=== PATIENT | female | born 1935 | race Caucasian/White ===

== ENCOUNTER 2018-01-17 17:32 | Emergency (ER) | payer MEDICARE, MEDICAID ==
[2018-01-17 17:56] LABS: % EOSINOPHILS 0.6 % (0.0-5.0); % LYMPHOCYTES 17.3 % (20.0-50.0); % MONOCYTES 7.2 % (2.0-10.0); % NEUTROPHILS 73.9 % (40.0-80.0); BASOPHILE ABSOLUTE 0.1 Th/cumm (0-0.2); HEMATOCRIT 40.6 % (41.0-60); HEMOGLOBIN 13.6 gm/dL (12-16); LYMPHOCYTE ABSOLUTE 1.1 Th/cmm (1.5-3.0); MEAN CELL VOLUME 81.8 fl (81-100); MEAN CORPUSCULAR HEMOGLOBIN 27.4 pg (27.0-31.0); MEAN CORPUSCULAR HGB CONC 33.6 pg (28.0-36.0); MEAN PLATELET VOLUME 8.7 fl; MONOCYTE ABSOLUTE 0.4 Th/cmm (0.3-1.0); NEUTROPHILE ABSOLUTE 4.5 Th/cmm (1.8-8.0); PLATELET COUNT 108 Th/cmm (150-400); RED BLOOD COUNT 4.96 Mil/cmm (3.80-5.20); RED CELL DISTRIBUTION WIDTH 13.6 % (11.5-20.0); WHITE BLOOD COUNT 6.1 Th/cmm (4.8-10.8)
[2018-01-17 18:10] LABS: ALB/GLOB RATIO 1.5 (1.0-1.8); ALBUMIN 4.3 gm/dL (3.7-5.3); ALKALINE PHOSPHATASE 70 U/L (34-104); ANION GAP 13.7 (7.0-16.0); BILIRUBIN,TOTAL 0.4 mg/dL (0.3-1.0); BUN - UREA NITROGEN 32 mg/dL (7-25); CALCIUM SERUM 10.3 mg/dL (8.6-10.3); CARBON DIOXIDE 23.7 mEq/L (21.0-31.0); CHLORIDE 102 mEq/L (98-107); CREATININE - SERUM 1.2 mg/dL (0.6-1.2); GLUCOSE 142 mg/dL (70-105); POTASSIUM SERUM 4.4 mEq/L (3.5-5.1); SGOT 11 U/L (13-39); SGPT/ALT 9 U/L (7-52); SODIUM SERUM 135 mEq/L (136-145); TOTAL PROTEIN,SERUM 7.1 gm/dL (6.0-8.3)
--- NOTE | 2018-01-17 18:15 | ED Physician Chart ---
ED Chief Complaint/HPI - Patient Information Date Seen:: 01/17/18 Time Seen:: 17:45 Chief Complaint:: headache and abdominal pain History of Present Illness:: THIS IS AN 82 YO FEMALE BIB EMS FROM A [facility] FOR AN EVALUATION OF HER HEADACHE AND ABDOMINAL PAIN. SHE STATES THAT THE PAIN IN HER ABDOMEN AND HEAD STARTED AT THE SAME TIME AT 0300 HRS TODAY. SHE DENIES HAVING FEVER, NAUSEA OR VOMITING. SHE STATES THAT SHE HAD BREAKFAST AND LUNCH WITHOUT VOMITING. SHE ALSO STATES THAT SHE HAD A BOWEL MOVEMENT THIS AM. SHE STATES THAT THE PAIN HAS GOTTEN WORSE SINCE IT FIRST STARTED. THE PAIN IS 6/10. Allergies:: Allergies Allergy/AdvReac Type Severity Reaction Status Date / Time No Known Allergies Allergy Verified 01/17/18 17:42 Vitals:: Vital Signs - 8 hr 01/17/18 17:42 Temp 98.5 F HR 77 RR 18 BP 164/63 O2 Sat % 95 Historian:: Patient, Medical Records Review:: Nurse's Note Reviewed, Transfer documents Reviewed ED Review of Systems - Review of Systems General/Constitutional: No fever, No chills, No weight loss, No weakness, No diaphoresis, No edema, No loss of appetite Skin: No skin lesions, No rash, No bruising Head: Headache, No light-headedness Eyes: No loss of vision, No pain, No diplopia ENT: No earache, No nasal drainage, No sore throat, No tinnitus Neck: No neck pain, No swelling, No thyromegaly, No stiffness, No mass noted Cardio Vascular: No chest pain, No palpitations, No PND, No orthopnea, No edema Pulmonary: No SOB, No cough, No sputum, No wheezing GI: No nausea, No vomiting, No diarrhea, Pain, No melena, No hematochezia, No constipation, No hematemesis G/U: No dysuria, No frequency, No hematuria Musculoskeletal: No bone or joint pain, No back pain, No muscle pain Endocrine: No polyuria, No polydipsia Psychiatric: No prior psych history, No depression, No anxiety, No suicidal ideation Hematopoietic: No bruising, No lymphadenopathy Allergic/Immuno: No urticaria, No angioedema Neurological: No syncope, No focal symptoms, No weakness, No paresthesia, No headache, No seizure, No dizziness, No confusion, No vertigo ED Past Medical History - Past Medical History Obtainable: Yes Past Medical History: HTN, Arthritis, Dementia Family History: None Social History: Non Smoker, No Alcohol, No Drug Use, Care Facility Surgical History: other (bldder surgery) Family Medical History - Family Member Daughter History Unknown: Yes Ethnicity: Non- Living Status: Hx Family Cancer: Yes ED Physical Exam - Physical Examination General/Constitutional: Awake, Well-developed, well-nourished, Alert, No distress, GCS 15, Non-toxic appearing, Ambulatory Head: Atraumatic Eyes: Lids, conjuctiva normal, PERRL, EOMI Skin: Nl inspection, No rash, No skin lesions, No ecchymosis, Well hydrated, No lymphadenopathy ENMT: External ears, nose nl, Nasal exam nl, Lips, teeth, gums nl Neck: Nontender, Full ROM w/o pain, No JVD, No nuchal rigidity, No bruit, No mass, No stridor Respiratory: Nl effort/Exclusion, Clear to Auscultation, No Wheeze/Rhonchi/Rales Cardio Vascular: RRR, No murmur, gallop, rubs, NL S1 S2 GI: No tenderness/rebounding/guarding (LEFT LOWER QUADRANT FULLNESS AND TENDERNESS), No organomegaly, No hernia, Normal BS's, Nondistended, No mass/ bruits, No McBurney tenderness : No CVA tenderness Extremities: No tenderness or effusion, Full ROM, normal strength in all extremities, No edema, Normal digits & nails Neuro/Psych: Alert/oriented, DTR's symmetric, Normal sensory exam, Normal motor strength, Judgement/insight normal, Mood normal, Normal gait, No focal deficits Misc: Normal back, No paraspinal tenderness ED Labs/Radiology/EKG Results - Lab Results Results: Laboratory Tests 01/17/18 17:45 WBC 6.1 RBC 4.96 Hgb 13.6 Hct 40.6 L MCV 81.8 MCH 27.4 MCHC Differential 33.6 RDW 13.6 Plt Count 108 L MPV 8.7 Neutrophils % 73.9 Lymphocytes % 17.3 L Monocytes % 7.2 Eosinophils % 0.6 Basophils % 1.0 Abnormal Lab Results 01/17/18 01/17/18 01/17/18 17:45 17:45 17:45 WBC 6.1 RBC 4.96 Hgb 13.6 Hct 40.6 L MCV 81.8 MCH 27.4 MCHC Differential 33.6 RDW 13.6 Plt Count 108 L MPV 8.7 Neutrophils % 73.9 Lymphocytes % 17.3 L Monocytes % 7.2 Eosinophils % 0.6 Basophils % 1.0 Sodium Potassium Chloride Carbon Dioxide Anion Gap BUN Creatinine Est GFR ( Amer) Est GFR (Non-Af Amer) BUN/Creatinine Ratio Glucose Calcium Total Bilirubin AST ALT Alkaline Phosphatase Troponin I 0.01 Total Protein Albumin Globulin Albumin/Globulin Ratio TSH 1.26 Urine Source Urine Color Urine Clarity Urine pH Ur Specific [place] Urine Protein Urine Glucose (UA) Urine Ketones Urine Blood Urine Nitrate Urine Bilirubin Urine Urobilinogen Ur Leukocyte Esterase 01/17/18 01/17/18 17:45 19:30 WBC RBC Hgb Hct MCV MCH MCHC Differential RDW Plt Count MPV Neutrophils % Lymphocytes % Monocytes % Eosinophils % Basophils % Sodium 135 L Potassium 4.4 Chloride 102 Carbon Dioxide 23.7 Anion Gap 13.7 BUN 32 H Creatinine 1.2 Est GFR ( Amer) TNP Est GFR (Non-Af Amer) TNP BUN/Creatinine Ratio 26.7 Glucose 142 H Calcium 10.3 Total Bilirubin 0.4 AST 11 L ALT 9 Alkaline Phosphatase 70 Troponin I Total Protein 7.1 Albumin 4.3 Globulin 2.8 Albumin/Globulin Ratio 1.5 TSH Urine Source CLEAN C Urine Color YELLOW Urine Clarity CLEAR Urine pH 5.5 Ur Specific [place] 1.020 Urine Protein NEGATIVE Urine Glucose (UA) NEGATIVE Urine Ketones NEGATIVE Urine Blood NEGATIVE Urine Nitrate NEGATIVE Urine Bilirubin NEGATIVE Urine Urobilinogen 0.2 Ur Leukocyte Esterase NEGATIVE - Radiology Results Results: CT SCAN OF THE ABDOMEN = NO ACUTE DISEASE VENTRAL HERNIA - EKG Interpretations EKG Time:: 17:41 Rate & Rhythm: rate=76, sinus [place]: left axis Intervals: no ectopy seen ED Assessment - Assessment General Assessment: ABDOMINAL PAIN ED Septic Shock - . Is Septic Shock (SBP<90, OR Lactate>4 mmol\L) present?: No - <6hrs of presentation: Vital Signs: Vital Signs - 8 hr 01/17/18 17:42 Temp 98.5 F HR 77 RR 18 BP 164/63 O2 Sat % 95 ED Reassessment (Disposition) - Reassessment Reassessment Condition:: Unchanged - Diagnosis Diagnosis:: HEADACHE ABDOMINAL PAIN - Aftercare/Follow up Instructions Aftercare/Follow-Up Instructions:: Counseled pt regarding lab results/diagnosis & need follow up, Refer to Discharge Instructions, Counseled pt & family regarding lab results/diagnosis & need follow up - Patient Disposition Discharge/Transfer:: Prison [facility] - SNF Condition at Disposition:: Stable ED Discharge Plan - Patient Disposition Admit/Discharge/Transfer: Discharge/Transfered to SNF Condition at Disposition: Improved Additional Instructions: I SPOKE TO DR. MCGOVERN AND RELAYED THE FINDING OF THE LABS AND EXAMINATION. THE DOCTOR INSTRUCTED ME TO SEND HER BACK TO THE RESIDENTIAL.
[2018-01-17] MEDS ORDERED: Sodium Chloride 0.9% 1,000 ML IV ONE (18:35)
[2018-01-17] MEDS ORDERED: IOHEXOL 300mgI/mL 100 ML VIAL ONE (19:31)
[2018-01-17 20:08] LABS: URINE SOURCE CLEAN C
[2018-01-17 20:09] LABS: URINE BILIRUBIN NEGATIVE (NEGATIVE); URINE BLOOD NEGATIVE (NEGATIVE); URINE GLUCOSE (UA) NEGATIVE (NEGATIVE); URINE KETONE NEGATIVE (NEGATIVE); URINE LEUKOCYTE ESTERASE NEGATIVE (NEGATIVE); URINE NITRATE NEGATIVE (NEGATIVE); URINE PH 5.5 (4.6 - 8.0); URINE PROTEIN NEGATIVE (NEGATIVE); URINE UROBILINOGEN 0.2 E.U./dL (0.2 - 1.0)
[2018-01-17 20:25] LABS: URINE CLARITY CLEAR (CLEAR); URINE COLOR YELLOW
[2018-01-17 20:26] LABS: URINE MICROSCOPIC INDICATED? NO
--- NOTE | 2018-01-18 09:48 | Diagnostic Imaging Report ---
Head CT without intravenous contrast Indication: pain Comparison: None Technique: Axial images were obtained from the vertex to the skull base without IV contrast. Coronal reconstructions were made. Total DLP: 579, CTDI29.8 FINDINGS: Images of the brain obtained without contrast demonstrate no acute hemorrhage. No mass lesions identified. The ventricles and basal cisterns are patent. Atrophy is noted. Diffuse white matter disease is noted. The ventricles and basal cisterns are patent. No mass effect or midline shift. No evidence of skull fracture focal soft tissue swelling. The visualized paranasal sinuses are clear. Atherosclerosis is noted. IMPRESSION: No evidence of acute intracranial hemorrhage. Atrophy. Diffuse supratentorial white matter disease which is nonspecific and may be due to chronic microvessel ischemia. Atherosclerotic vascular disease.
--- NOTE | 2018-01-18 10:11 | Diagnostic Imaging Report ---
CT abdomen and pelvis with intravenous contrast Indication: Left lower quadrant pain Comparison: None, Technique: Axial images were obtained from the lung bases to the bilateral proximal femurs with IV contrast. Coronal reconstructions were made. total DLP: 549, CTDI11.3 FINDINGS: Hypoventilatory and atelectatic changes of the lung bases are noted. There is a 2.5 x 2.2 cm lobulated cyst in the right lobe of the liver. There is a subcentimeter low-density seen in the posterior right lobe too small to characterize suggestive of a cyst. Splenic low-density lesions are seen the largest in the posterior aspect measuring 1.3 cm, indeterminate. Punctate splenic granulomas noted. No focal pancreatic lesions. Pancreatic atrophy is noted. No focal adrenal lesions. There is a 2 cm left renal cyst. Mild nonspecific perinephric inflammatory changes are noted. There is a 3 x 2.5 cm left adnexal cystic lesion. There is minimal diverticulosis. No evidence of diverticulitis. Appendix is not well-visualized. There is diastases of the midline abdominal wall with broadbase hernia containing nondilated bowel loops. No evidence of free air or free fluid. Moderate atherosclerosis is noted. There appear to be small calcified uterine fibroids. Degenerative changes of the spine and pelvis are noted. IMPRESSION: 3 x 2 point cm left adnexal cystic lesion. Given patient's age, neoplastic etiology cannot be completely excluded. Correlation is to be made with old exams. Ultrasound follow up is also recommended. Diastases of the midline rectus abdominis muscles with broad based ventral hernia containing bowel loops. No evidence of obstruction. Minimal diverticulosis. No evidence of diverticulitis. Mildly prominent spleen with low-density lesions, difficult to characterize and may not represent simple cysts. Other infectious/inflammatory or less likely neoplastic process cannot be excluded. Ultrasound is recommended for further assessment. Probable small calcified uterine fibroids. Ultrasound would further clarify. Renal and hepatic cysts. Atherosclerotic vascular disease. Degenerative changes.
== END 2018-01-17 21:15 ==
LOC: ER 17:32
DX: R51 Headache (principal); R10.32 Left lower quadrant pain; I10 Essential (primary) hypertension
CPT/HCPCS: 99285; 93005; 70450; 74177; 84484; 36415; 84443; 85025; 81003; 80053; 87040 ×2; J7040; Q9967